=== PATIENT | female | born 1960 | race African-American/Black ===

== ENCOUNTER 2022-02-01 14:24 | Inpatient (IN) | payer BC ==
[2022-02-01 15:17] LABS: Actual Bicarbonate (HCO3v) 22 mEq/L (22-28); Base Excess -5.5 mEq/L (-2.0 to +3.0); Calcium, Ionized (venous) 1.19 mmol/L (1.16-1.32); Chloride (VBG) 101 mmol/L (98-106); Potassium (VBG) 4.29 mmol/L (3.70-5.30); Puncture Site Other Site; Sodium 139.8 mmol/L (133-146); pH (venous) 7.25 (7.32-7.43)
[2022-02-01 15:29] LABS: Mean Corpuscular HGB CONC 33.3 g/dL (32.0-36.0); Mean Corpuscular Hemoglobin 30.4 pg (27.0-33.0); Mean Corpuscular Volume 91.1 fl (81.6-98.3); Mean Platelet Volume 10.3 fl (7.4-10.4); Platelet Count 295 10x3/uL (150-450); RBC Distribution Width 13.7 % (11.5-14.5); Red Blood Cell (RBC) Count 4.61 10x6/uL (3.90-5.03); White Blood Cell (WBC) Count 13.1 10x3/uL (3.5-10.5)
[2022-02-01 15:42] LABS: PTT Less than 20.0 sec (22.0-33.0); Prothrombin Time 10.8 sec (9.5-12.1)
[2022-02-01 15:53] LABS: ALT (SGPT) 21 U/L (8-55); AST (SGOT) 10 U/L (5-34); Albumin 4.5 g/dL (3.4-4.8); Alkaline Phosphatase 241 U/L (40-110); Anion Gap 18 mmol/L (10-20); BUN (Urea Nitrogen) 23 mg/dL (9.8-20.1); Bilirubin, Total 0.4 mg/dL (0.2-1.2); Calc. Creatinine Clearance 0 mL/min (70-130); Calcium 9.4 mg/dL (7.8-10.44); Carbon Dioxide 21 mmol/L (23-31); Chloride 99 mmol/L (98-107); Globulin 4.1 g/dL (2.4-3.5); Magnesium 2.9 mg/dL (1.6-2.6); Potassium 4.2 mmol/L (3.5-5.1); Protein, Total 8.6 g/dL (5.8-8.1); Sodium 134 mmol/L (136-145)
[2022-02-01 16:10] LABS: Band 2 % (5-11); Lymphocytes 15 % (21-51); MDiff Complete? YES; Monocytes 3 % (0-10); Myelocyte 1 % (0-0); Neutrophil 79 % (42-75)
[2022-02-01 16:11] LABS: Large Platelets SLIGHT; Platelet Morphology Comment Appears Adequate; RBC Morphology Normal
[2022-02-01 16:19] LABS: SARS-CoV-2 NAA Rapid Test Not Detected (NotDetected)
[2022-02-01 16:20] LABS: Glucose 877 mg/dL (80-115)
[2022-02-01] MEDS ORDERED: INSULIN REGULAR IN 0.9 % NACL 100 UNIT/100 ML BAG ONE (16:36)
[2022-02-01] MEDS ORDERED: Insulin Regular 300 UNITS/3 ML VIAL ONE (16:36)
[2022-02-01] MEDS ORDERED: NS 0.9% w/ 20 MEQ KCL 1,000 ML IV PRN (17:21)
[2022-02-01] MEDS ORDERED: Ondansetron ODT 4 MG TAB PO PRN (17:21)
[2022-02-01] MEDS ORDERED: Bisacodyl 5 MG TAB PO PRN (17:21)
[2022-02-01] MEDS ORDERED: Dextrose 5 %-0.45 % NaCl 1,000 ML IV PRN (17:21)
[2022-02-01] MEDS ORDERED: Acetaminophen 325 MG TAB PO PRN (17:21)
[2022-02-01] MEDS ORDERED: D5 1/2 NS w/20 mEq KCL 1,000 ML IV PRN (17:21)
[2022-02-01] MEDS ORDERED: Senokot S 8.6-50 MG TAB PO PRN (17:21)
[2022-02-01] MEDS ORDERED: Electrolyte Replacement Protocol 1 EACH IVPB PRN (17:21)
[2022-02-01] MEDS ORDERED: Sodium Chloride 0.9% 1,000 ML IV PRN ×4 (17:21)
[2022-02-01] MEDS ORDERED: Ondansetron PF 4 MG/2 ML Vial IVP PRN (17:21)
[2022-02-01] MEDS ORDERED: INSULIN REGULAR IN 0.9 % NACL 100 UNIT in Premix Bag 1 BAG IVPB SCH (17:45)
[2022-02-01 18:14] VITALS: BMI 20.7
[2022-02-01] MEDS ORDERED: Prevnar 13-Val Conj/PF 0.5 ML SYRINGE IM ONE (20:30)
[2022-02-01] MEDS ORDERED: Atorvastatin Calcium 40 MG TAB PO SCH (21:00)
[2022-02-01] MEDS: Atorvastatin Calcium 10 MG TAB PO SCH (21:18)
[2022-02-01] MEDS: NS 0.9% w/ 20 MEQ KCL 1,000 ML IV PRN ×2 (21:19→23:40)
[2022-02-01] MEDS: Heparin 5,000 UNITS/ML VIAL SC SCH (21:20)
[2022-02-01 21:29] LABS: Anion Gap 20 mmol/L (10-20); BUN (Urea Nitrogen) 20 mg/dL (9.8-20.1); Calc. Creatinine Clearance 43 mL/min (70-130); Calcium 9.7 mg/dL (7.8-10.44); Carbon Dioxide 11 mmol/L (23-31); Chloride 113 mmol/L (98-107); Glucose 517 mg/dL (80-115); Sodium 139 mmol/L (136-145)
[2022-02-01 21:30] LABS: Potassium 4.9 mmol/L (3.5-5.1)
[2022-02-01 21:46] LABS: Bilirubin Neg (Negative); Blood, Urine 10 (Negative); Clarity Clear (Clear); Glucose, Urine (Dipstick) >=1000 mg/dL (Negative); Ketone, Urine 5 mg/dL (Negative); Leukocyte Negative (Negative); Nitrite Negative (Negative); Protein, Urine (Dipstick) 15 mg/dl (Neg-Trace); Specific Gravity, Urine 1.015 (1.002-1.036); Urobilinogen Normal mg/dL (Less than 2)
[2022-02-01 21:52] LABS: Urine Culture Reflex No No
[2022-02-01 21:57] LABS: Creatinine, Urine 56.29 mg/dL (47-110)
[2022-02-01 21:58] LABS: Bacteria/HPF 2+ HPF (None Seen); RBC/HPF 0-3 HPF (0-3); Squamous Epithelial 0-3 HPF (0-3); WBC/HPF 0-3 HPF (0-3)
[2022-02-02 00:13] LABS: Hemoglobin A1c 12.2 % (4.0-6.0)
[2022-02-02 02:43] LABS: #Eosinphils 0.1 10x3/uL (0.0-0.5); #Monocytes 1.4 10x3/uL (0.0-1.1); #Neutrophils 9.9 10x3/uL (1.5-8.4); %Basophils 0.2 % (0.0-2.0); %Eosinophils 0.9 % (0.0-6.0); %Lymphocytes 21.5 % (18.0-47.0); %Monocytes 9.7 % (0.0-10.0); %Neutrophils 67.2 % (40.0-75.0); Hemoglobin 12.6 g/dL (12.0-15.5); Mean Corpuscular HGB CONC 34.2 g/dL (32.0-36.0); Mean Corpuscular Hemoglobin 30.5 pg (27.0-33.0); Mean Corpuscular Volume 89.1 fl (81.6-98.3); Mean Platelet Volume 9.7 fl (7.4-10.4); Platelet Count 283 10x3/uL (150-450); RBC Distribution Width 13.8 % (11.5-14.5); Red Blood Cell (RBC) Count 4.13 10x6/uL (3.90-5.03); White Blood Cell (WBC) Count 14.7 10x3/uL (3.5-10.5)
[2022-02-02 02:55] LABS: Actual Bicarbonate (HCO3v) 17 mEq/L (22-28); Base Excess -11.1 mEq/L (-2.0 to +3.0); Calcium, Ionized (venous) 1.18 mmol/L (1.16-1.32); Chloride (VBG) 114 mmol/L (98-106); Hemoglobin (Hb) 13.9 g/dL (11.7-16.0); Puncture Site Other Site; Sodium 146.5 mmol/L (133-146); pH (venous) 7.18 (7.32-7.43)
[2022-02-02 04:18] LABS: ALT (SGPT) 15 U/L (8-55); AST (SGOT) 13 U/L (5-34); Albumin 3.9 g/dL (3.4-4.8); Alkaline Phosphatase 184 U/L (40-110); Anion Gap 18 mmol/L (10-20); BUN (Urea Nitrogen) 16 mg/dL (9.8-20.1); Bilirubin, Direct 0.2 mg/dL (0.1-0.3); Bilirubin, Total 0.3 mg/dL (0.2-1.2); Calc. Creatinine Clearance 56 mL/min (70-130); Calcium 8.9 mg/dL (7.8-10.44); Carbon Dioxide 17 mmol/L (23-31); Cardiac Risk 2.3 (Less than 4.5); Chloride 116 mmol/L (98-107); Cholesterol 70 mg/dl (< 200 Desired); Glucose 98 mg/dL (80-115); HDL Cholesterol 30 mg/dL (>60 Neg Risk); LDL Cholesterol, Calculated 22 mg/dL; Magnesium 2.4 mg/dL (1.6-2.6); Potassium 3.5 mmol/L (3.5-5.1); Protein, Total 7.8 g/dL (5.8-8.1); Sodium 147 mmol/L (136-145); Triglycerides 92 mg/dL (Less than 150)
[2022-02-02] MEDS ORDERED: Potassium Chloride 20 MEQ TAB PO SCH (05:45)
[2022-02-02 08:33] LABS: Anion Gap 14 mmol/L (10-20); BUN (Urea Nitrogen) 14 mg/dL (9.8-20.1); Calc. Creatinine Clearance 65 mL/min (70-130); Calcium 8.3 mg/dL (7.8-10.44); Carbon Dioxide 18 mmol/L (23-31); Chloride 114 mmol/L (98-107); Glucose 189 mg/dL (80-115); Magnesium 2.1 mg/dL (1.6-2.6); Phosphorus 2.4 mg/dL (2.3-4.7); Potassium 4.4 mmol/L (3.5-5.1); Sodium 142 mmol/L (136-145)
[2022-02-02] MEDS: Aspirin 81 mg Enteric Coated Tablet PO SCH (08:37)
[2022-02-02] MEDS: Heparin 5,000 UNITS/ML VIAL SC SCH ×3 (08:37→20:28)
[2022-02-02] MEDS: D5 LR w/20 mEq KCL 1,000 ML IV SCH ×2 (09:16→17:39)
[2022-02-02] MEDS ORDERED: Dextrose 50% Abboject 50 ML SYRINGE SLOW IVP PRN (11:10)
[2022-02-02] MEDS ORDERED: Dextrose 5% in Water 1,000 ML IV PRN (11:10)
[2022-02-02] MEDS ORDERED: Lantus 1000 UNITS/10 ML VIAL SC SCH (11:15)
[2022-02-02 12:04] LABS: Potassium 4.8 mmol/L (3.5-5.1)
[2022-02-02 12:05] LABS: Glucose 208 mg/dL (80-115)
[2022-02-02 12:07] LABS: Sodium, Urine Less than 20 mmol/L (Not Available); Urea Nitrogen, Random Urine 255 mg/dl
[2022-02-02] MEDS: HumaLOG 300 UNITS/3 ML VIAL SC PRN ×2 (16:24→22:10)
[2022-02-02 17:10] LABS: Glucose 197 mg/dL (80-115)
[2022-02-02] MEDS: Atorvastatin Calcium 10 MG TAB PO SCH (20:28)
[2022-02-02 21:40] LABS: Glucose 343 mg/dL (80-115)
[2022-02-03] MEDS: Cyclobenzaprine 10 MG TAB PO PRN ×2 (00:06→21:59)
[2022-02-03 04:52] LABS: #Eosinphils 0.1 10x3/uL (0.0-0.5); #Monocytes 0.5 10x3/uL (0.0-1.1); #Neutrophils 4.8 10x3/uL (1.5-8.4); %Basophils 0.4 % (0.0-2.0); %Eosinophils 1.5 % (0.0-6.0); %Lymphocytes 27.5 % (18.0-47.0); %Monocytes 6.2 % (0.0-10.0); %Neutrophils 63.9 % (40.0-75.0); Hemoglobin 11.6 g/dL (12.0-15.5); Mean Corpuscular HGB CONC 34.7 g/dL (32.0-36.0); Mean Corpuscular Hemoglobin 30.2 pg (27.0-33.0); Mean Platelet Volume 10.3 fl (7.4-10.4); Platelet Count 191 10x3/uL (150-450); RBC Distribution Width 13.9 % (11.5-14.5); Red Blood Cell (RBC) Count 3.84 10x6/uL (3.90-5.03); White Blood Cell (WBC) Count 7.6 10x3/uL (3.5-10.5)
[2022-02-03 05:22] LABS: Anion Gap 14 mmol/L (10-20); BUN (Urea Nitrogen) 7 mg/dL (9.8-20.1); Calc. Creatinine Clearance 65 mL/min (70-130); Calcium 8.4 mg/dL (7.8-10.44); Carbon Dioxide 18 mmol/L (23-31); Chloride 110 mmol/L (98-107); Glucose 273 mg/dL (80-115); Magnesium 1.8 mg/dL (1.6-2.6); Potassium 3.5 mmol/L (3.5-5.1); Sodium 138 mmol/L (136-145)
[2022-02-03] MEDS ORDERED: Magnesium 2 GM/50 ML(in water) 2 GM in Premix Bag 1 BAG IVPB SCH (06:00)
[2022-02-03] MEDS ORDERED: Potassium Chloride 20 MEQ TAB PO SCH (06:00)
[2022-02-03] MEDS: HumaLOG 300 UNITS/3 ML VIAL SC PRN ×5 (06:07→21:59)
[2022-02-03 08:00] LABS: Glucose 223 mg/dL (80-115)
[2022-02-03] MEDS: Aspirin 81 mg Enteric Coated Tablet PO SCH (08:43)
[2022-02-03] MEDS: Heparin 5,000 UNITS/ML VIAL SC SCH ×3 (08:45→21:20)
[2022-02-03] MEDS ORDERED: Lantus 1000 UNITS/10 ML VIAL SC SCH ×3 (09:00→16:15)
[2022-02-03 12:35] LABS: Glucose 199 mg/dL (80-115)
[2022-02-03 13:06] LABS: Potassium 3.8 mmol/L (3.5-5.1)
[2022-02-03 18:06] LABS: Glucose 390 mg/dL (80-115)
[2022-02-03] MEDS: metFORMIN 500 MG TAB PO SCH (21:14)
[2022-02-03] MEDS: Atorvastatin Calcium 10 MG TAB PO SCH (21:15)
[2022-02-03 21:49] LABS: Glucose 331 mg/dL (80-115)
[2022-02-04] MEDS ORDERED: Hydrocortisone 1% Cream 30 GM TUBE TOP PRN (00:17)
[2022-02-04 04:33] LABS: #Eosinphils 0.1 10x3/uL (0.0-0.5); #Monocytes 0.5 10x3/uL (0.0-1.1); #Neutrophils 4.2 10x3/uL (1.5-8.4); %Basophils 0.3 % (0.0-2.0); %Eosinophils 1.7 % (0.0-6.0); %Lymphocytes 27.8 % (18.0-47.0); %Monocytes 7.4 % (0.0-10.0); %Neutrophils 62.5 % (40.0-75.0); Hemoglobin 11.4 g/dL (12.0-15.5); Mean Corpuscular HGB CONC 34.5 g/dL (32.0-36.0); Mean Corpuscular Hemoglobin 29.8 pg (27.0-33.0); Mean Corpuscular Volume 86.2 fl (81.6-98.3); Platelet Count 169 10x3/uL (150-450); RBC Distribution Width 13.6 % (11.5-14.5); Red Blood Cell (RBC) Count 3.83 10x6/uL (3.90-5.03); White Blood Cell (WBC) Count 6.6 10x3/uL (3.5-10.5)
[2022-02-04 04:52] LABS: Anion Gap 13 mmol/L (10-20); BUN (Urea Nitrogen) 8 mg/dL (9.8-20.1); Calc. Creatinine Clearance 71 mL/min (70-130); Calcium 8.5 mg/dL (7.8-10.44); Carbon Dioxide 20 mmol/L (23-31); Chloride 110 mmol/L (98-107); Glucose 171 mg/dL (80-115); Magnesium 1.9 mg/dL (1.6-2.6); Potassium 3.4 mmol/L (3.5-5.1); Sodium 140 mmol/L (136-145)
[2022-02-04] MEDS ORDERED: Potassium Chloride 20 MEQ TAB PO SCH ×2 (05:00→09:45)
[2022-02-04] MEDS ORDERED: Magnesium 2 GM/50 ML(in water) 2 GM in Premix Bag 1 BAG IVPB SCH (05:00)
[2022-02-04] MEDS: HumaLOG 300 UNITS/3 ML VIAL SC PRN ×3 (06:12→17:29)
[2022-02-04 08:41] LABS: Glucose 143 mg/dL (80-115)
[2022-02-04] MEDS: Aspirin 81 mg Enteric Coated Tablet PO SCH (09:15)
[2022-02-04] MEDS: Heparin 5,000 UNITS/ML VIAL SC SCH ×3 (09:18→21:50)
[2022-02-04 11:05] LABS: Potassium 3.9 mmol/L (3.5-5.1)
[2022-02-04 11:26] LABS: Glucose 310 mg/dL (80-115)
[2022-02-04] MEDS ORDERED: Empagliflozin 10 MG TAB PO SCH (17:00)
[2022-02-04 17:26] LABS: Glucose 293 mg/dL (80-115)
[2022-02-04 21:14] LABS: Glucose 246 mg/dL (80-115)
[2022-02-04] MEDS: metFORMIN 500 MG TAB PO SCH (21:50)
[2022-02-04] MEDS: Atorvastatin Calcium 10 MG TAB PO SCH (21:50)
[2022-02-04] MEDS: Cyclobenzaprine 10 MG TAB PO PRN (21:55)
[2022-02-05 04:17] LABS: #Eosinphils 0.1 10x3/uL (0.0-0.5); #Monocytes 0.6 10x3/uL (0.0-1.1); #Neutrophils 4.4 10x3/uL (1.5-8.4); %Basophils 0.2 % (0.0-2.0); %Eosinophils 0.9 % (0.0-6.0); %Lymphocytes 20.3 % (18.0-47.0); %Monocytes 9.4 % (0.0-10.0); %Neutrophils 68.9 % (40.0-75.0); Hemoglobin 12.3 g/dL (12.0-15.5); Mean Corpuscular HGB CONC 34.6 g/dL (32.0-36.0); Mean Corpuscular Hemoglobin 30.3 pg (27.0-33.0); Mean Corpuscular Volume 87.4 fl (81.6-98.3); Platelet Count 157 10x3/uL (150-450); RBC Distribution Width 13.8 % (11.5-14.5); Red Blood Cell (RBC) Count 4.06 10x6/uL (3.90-5.03); White Blood Cell (WBC) Count 6.4 10x3/uL (3.5-10.5)
[2022-02-05 04:32] LABS: Anion Gap 14 mmol/L (10-20); BUN (Urea Nitrogen) 10 mg/dL (9.8-20.1); Calc. Creatinine Clearance 55 mL/min (70-130); Calcium 9.1 mg/dL (7.8-10.44); Carbon Dioxide 20 mmol/L (23-31); Chloride 108 mmol/L (98-107); Glucose 182 mg/dL (80-115); Potassium 3.8 mmol/L (3.5-5.1); Sodium 138 mmol/L (136-145)
[2022-02-05] MEDS ORDERED: Magnesium 2 GM/50 ML(in water) 2 GM in Premix Bag 1 BAG IVPB SCH (05:15)
[2022-02-05] MEDS ORDERED: Empagliflozin 10 MG TAB PO SCH (09:00)
[2022-02-05] MEDS ORDERED: Valsartan 80 MG TAB PO SCH (09:00)
[2022-02-05] MEDS ORDERED: Lantus 1000 UNITS/10 ML VIAL SC SCH ×2 (09:00→16:35)
[2022-02-05] MEDS: Aspirin 81 mg Enteric Coated Tablet PO SCH (09:36)
[2022-02-05] MEDS: Heparin 5,000 UNITS/ML VIAL SC SCH ×2 (09:36→16:52)
[2022-02-05] MEDS ORDERED: HumaLOG 300 UNITS/3 ML VIAL SC SCH (11:30)
[2022-02-05 11:38] LABS: Glucose 320 mg/dL (80-115)
[2022-02-05] MEDS: HumaLOG 300 UNITS/3 ML VIAL SC PRN ×2 (11:59→16:52)
[2022-02-05 13:25] LABS: Glucose 312 mg/dL (80-115)
[2022-02-05 17:24] VITALS: BP 141/89; TEMP 99
[2022-02-06] MEDS ORDERED: Lantus 1000 UNITS/10 ML VIAL SC SCH (09:00)
== END 2022-02-05 18:50 | disposition home or self-care (01) | DRG 638 ==
LOC: CSHERS 14:24 → SUATTDRO 14:24 → CSHIMCU 17:36 → CSHTELE 02-02 17:29
PROVIDERS: ADMIT Family Medicine; ATTEND Hospitalist
DX: E11.10 Type 2 diabetes mellitus with ketoacidosis without coma (principal); I42.9 Cardiomyopathy, unspecified; N17.9 Acute kidney failure, unspecified; E87.1 Hypo-osmolality and hyponatremia; I50.22 Chronic systolic (congestive) heart failure; I11.0 Hypertensive heart disease with heart failure; E78.5 Hyperlipidemia, unspecified; K21.9 Gastro-esophageal reflux disease without esophagitis; G89.29 Other chronic pain; M54.9 Dorsalgia, unspecified; F17.210 Nicotine dependence, cigarettes, uncomplicated; E86.0 Dehydration; Z86.73 Personal history of transient ischemic attack (TIA), and cerebral infarction without residual deficits; Z91.011 Allergy to milk products; Z88.0 Allergy status to penicillin; Z79.899 Other long term (current) drug therapy; Z71.6 Tobacco abuse counseling
CPT/HCPCS: 36415; 36416; 70551; 76705; 80053; 80061; 80076; 81001; 82010; 82570; 82805; 82947; 83036; 83690; 83735; 83930; 83935; 84100; 84300; 84443; 84540; 85025; 85610; 85730; 87040; 87086; 93005; 93010; 93306; 93880; 93970; 96365; 96376; J1644; J1815; J3475; J3480; U0002

== ENCOUNTER 2023-12-11 10:00 | Outpatient (CLI) | payer BC ==
[2023-12-11] MEDS ORDERED: Iopamidol 300 61% 100 ML VIAL FS ONE (12:40)
== END 2023-12-11 10:01 | disposition home or self-care (01) ==
LOC: CSHCT 10:00
PROVIDERS: ATTEND Family Medicine
DX: R74.01 Elevation of levels of liver transaminase levels (principal); K76.0 Fatty (change of) liver, not elsewhere classified; K83.8 Other specified diseases of biliary tract
CPT/HCPCS: 74177; 82565; Q9967

== ENCOUNTER 2024-03-23 09:49 | Outpatient (CLI) | payer BC | END 2024-03-23 09:50 | disposition home or self-care (01) | LOC: CSHULT 09:49 | PROVIDERS: ATTEND Family Medicine | DX: R74.8 Abnormal levels of other serum enzymes (principal); K83.8 Other specified diseases of biliary tract; R16.0 Hepatomegaly, not elsewhere classified; K80.20 Calculus of gallbladder without cholecystitis without obstruction | CPT/HCPCS: 76705 ==

== ENCOUNTER 2024-03-23 10:52 | Outpatient (CLI) | payer BC | END 2024-03-23 10:53 | disposition home or self-care (01) | LOC: CSHMAMMO 10:52 | PROVIDERS: ATTEND Family Medicine | DX: Z12.31 Encounter for screening mammogram for malignant neoplasm of breast (principal) | CPT/HCPCS: 77063; 77067 ==